=== PATIENT | female | born 1970 | race Caucasian/White ===

== ENCOUNTER → 2024-09-08 | Outpatient (CLI) | payer MEDICAID, SELFPAY ==
--- NOTE | 2024-09-08 14:30 | XR_ITS ---
Examination: Screening digital mammography, bilateral Computer aided detection 3-D breast Tomosynthesis, bilateral Date and time of exam: 05/11/2024 1413 hours Compared to mammograms dating to February 06, 2015 Indication: Screening Technique: Nonmagnified MLO, CC views of the breasts to been obtained, reconstructed from 3-D Tomosynthesis images. R2 computer aided detection program utilized for evaluation of suspicious masses and/or abnormal calcifications. 3-D Tomosynthesis images obtained. Findings: The breasts are heterogeneously dense, which may obscure small masses Breast biopsy marker retroareolar region right breast No interval suspicious mass Impression: BI-RADS category II: Benign Findings. Recommend 1 year follow-up mammogram.
== END | disposition home or self-care (01) ==
LOC: CDIM 14:06
PROVIDERS: Referring Provider Physician Assistant; Visit Provider Physician Assistant
DX: Z12.31 Encounter for screening mammogram for malignant neoplasm of breast (principal); R92.323 Mammographic fibroglandular density, bilateral breasts
CPT/HCPCS: 77063; 77067

== ENCOUNTER 2024-10-05 06:50 | Day surgery (SDC) | payer MEDICAID, SELFPAY ==
--- NOTE | 2024-10-03 06:00 | EKG_ITS ---
[facility] Test Date: 2024-10-03 Pat Name: DESIRE BARAJAS Department: Room: - Gender: Female House Manager: VALARIE : 1970 Requested By: Navi Osborn Order Number: [id number] Reading MD: Navi Osborn Measurements Intervals Donalds Rate: 51 P: 63 NE: 138 QRS: 59 QRSD: 80 T: 55 QT: 472 QTc: 436 Interpretive Statements SINUS BRADYCARDIA No previous ECG available for comparison /store/S0/[id number].pdf
[2024-10-03 09:11] VITALS: BMI 31.7
[2024-10-03 10:00] LABS: Basophils # (Auto) 0.0 Thou/mm3 (0.0-0.2); Basophils % (Auto) 0 % (0-2.5); Eosinophils # (Auto) 0.0 Thou/mm3 (0.0-0.5); Eosinophils % (Auto) 0 % (0-10); Hematocrit 32.8 % (36.0-46.0); Hemoglobin 10.6 g/dL (12.0-16.0); Immature Granulocytes Auto 0.03 Thou/mm3 (0.00-0.00); Lymphocytes # (Auto) 1.4 Thou/mm3 (1.0-4.8); Lymphocytes % (Auto) 13 % (10-50); Mean Corpuscular HGB Conc 32.3 g/dl (31.0-37.0); Mean Corpuscular Hemoglobin 27.7 pg (25.0-35.0); Mean Corpuscular Volume 86 fL (80-100); Monocytes # (Auto) 0.4 Thou/mm3 (0.0-0.8); Monocytes % (Auto) 4 % (0-12); Neutrophils # (Auto) 8.7 Thou/mm3 (1.8-7.7); Neutrophils % (Auto) 82 % (37-80); Nucleated Red Blood Cell # 0.00 Thou/mm3 (0.00-0.00); Nucleated Red Blood Cell % 0 /100 WBC (0); Platelet Count 291 Thou/mm3 (140-440); RDW Standard Deviation 43.1 fL (36.4-46.3); Red Blood Count 3.83 Miln/mm3 (4.00-5.20); White Blood Count 10.6 Thou/mm3 (3.6-11.0)
[2024-10-03 10:24] LABS: Alanine Aminotransferase 15 U/L (10-49); Albumin, Serum 4.6 gm/dL (3.5-5.0); Albumin/Globulin Ratio 1.8 (1.2-2.2); Alkaline Phosphatase 102 U/L (46-116); Anion Gap 12 (7-16); Aspartate Amino Transferase 14 U/L (0-34); BUN/Creatinine Ratio 33 Ratio (12-20); Bilirubin,Total 0.3 mg/dL (0.3-1.2); Blood Urea Nitrogen 23 mg/dL (9-23); Calcium 9.8 mg/dL (8.3-10.6); Calcium (Corrected) 9.8 mg/dL (8.5-10.1); Carbon Dioxide 21.6 mMol/L (20.0-31.0); Chloride 109 mMol/L (98-107); Creatinine (Component) 0.7 mg/dL (0.6-1.3); Estimated Creatinine Clearance 84.3 mL/min (>60); Globulin 2.6 gm/dL (2.3-3.5); Glucose 135 mg/dL (74-106); Osmolality,Calculated 290 (275-295); Potassium 3.5 mMol/L (3.4-5.1); Sodium 143 mMol/L (136-145); Total Protein 7.2 gm/dL (5.7-8.2); eGFR > 60 See Note
[2024-10-03 10:28] LABS: HCG,Qualitative Serum Negative
[2024-10-03 11:00] LABS: Hepatitis A Antibody IgM Non Reactive (Non React); Hepatitis B Core Antibody IgM Non Reactive (Non React); Hepatitis B Surface Antigen Non Reactive (Non React); Hepatitis C Antibody Non Reactive (Non React)
[2024-10-03 12:12] LABS: HIV (1&2) Antibody Rapid Non-Reactive
[2024-10-05] VITALS (7 sets, daily range): BP systolic 140–155; BP diastolic 67–82; PULSE 49–76; RESP 12–20; TEMP 36.1–36.2; O2SAT 98–100; BMI 32.1
--- NOTE | 2024-10-05 07:50 | PD.GYNHP ---
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 MORRIS is a 54 year old female para 4 admitted for a diagnostic hysteroscopy polypectomy. Patient was seen for abnormal uterine bleeding in the office and on examination was found to have a 4 cm large sessile polyp. Patient was offered an office removal versus removal under anesthesia and a diagnostic hysteroscopy to remove any other anticipated endometrial polyps. Patient desires hysteroscopy instead. Has a history of chronic hypertension on medication Review of Systems Review of Systems Systems Reviewed: All systems reviewed, normal except as documented Constitutional Constitutional: Reports as per HPI Respiratory Respiratory: Reports as per HPI Musculoskeletal Musculoskeletal: Reports as per HPI Integumentary/Breasts Skin/Breast: Reports other (Pale skin) Hematologic/Lymphatic Hematologic/Lymphatic: Reports as per HPI and Reports easy bruising Meds Home Medications and Allergies Home Medications ?Medication ?Instructions ?Recorded ?Confirmed ?Type lisinopril 20 mg tablet 20 mg PO QDAY 01/06/18 10/03/24 History magnesium 100 mg capsule 100 mg PO QDAY 10/03/24 10/03/24 History multivitamin (Daily Multi-Vitamin 1 tab PO QAM 10/03/24 10/03/24 History tablet) Allergies Allergy/AdvReac Type Severity Reaction Status Date / Time No Known Allergies Allergy Verified 10/03/24 09:06 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 - 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 Vital Signs Temp Pulse Resp BP Pulse Ox 97.2 F 49 L 14 140/67 H 98 10/05/24 07:10 10/05/24 07:10 10/05/24 07:10 10/05/24 07:10 10/05/24 07:10 Constitutional Constitutional: no acute distress Routine HEENT Exam Head: Present normocephalic and atraumatic Eye: Present EOMI and PERRL ENT: Present mucous membranes moist Routine Neck Exam Neck: Present supple and trachea midline Routine Respiratory Exam Respiratory: Present chest non-tender, lungs clear, normal breath sounds and no resp distress Routine Cardiovascular Exam Cardiovascular: Present RRR Routine Abdominal Exam Abdominal: Present soft and normoactive bowel sounds Routine Extremities Exam Extremities: Present full ROM Routine Skin Exam Skin: Present intact and dry Routine Neurological Exam Neurological: Present alert, oriented X3 and CN II-XII intact Routine Psychiatric Exam Psychiatric: Present normal affect and normal thought process 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 Anterior body uterus fibroid nodule measuring 1.6 x 1.7 cm, no changecompared to prior examination. Endometrial thickness 9.5 mm. No free fluidin the cul-de-sac. Adnexa is intact.Right ovary measures 2.8 x 2.3 x 2.6 cm. Right ovarian cysts, largestmeasuring 1.8 cm.Left ovary measures 3.2 x 2.6 x 3.4 cm.Left ovarian small follicular cysts. Not a candidate for oral contraceptive pills as she is hypertensive Declines to use any other hormonal methods Assessment and Plan Additional Assessment & Plan Additional Plan: Hysteroscopy, diagnostic and polypectomy Quality Measures Quality Measures VTE prophylaxis
--- NOTE | 2024-10-05 09:29 | SUR.PHASEI ---
pt received from OR in recovery bay 5. pt awake and alert, breathing unlabored on nc 2l. v/s stable. pt dressing peripad cdi. report received from Marcia Bethea and Jamarcus COTTO.
--- NOTE | 2024-10-05 09:37 | SUR.PHASEI ---
pt able to tolerate oral fluids without difficulty swallowing or nausea/vomiting.
--- NOTE | 2024-10-05 09:48 | PD.GYNPROC ---
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 The potential benefits and risks of the procedure, the likelihood of success, and the problems related to recuperation have been discussed with patient who agrees to proceed. The possible results of nontreatment and significant alternatives to the proposed procedure have also been explained, along with the risks and benefits of the alternatives. Risks and benefits of chosen anesthetic/sedation and possible use of blood/blood products (if appropriate) were discussed.The patient was identified as Carolin Verdugo and the procedure verified. A time out was held reviewing the patient identifiers, procedure planned and allergies. At this point the procedure was begun. The patient was positioned and prepped in routine fashion in the dorsal lithotomy position using yellowfin stirups. On examination under anesthesia,the uterus was retroverted to a normal size. Bladder was drained by catheter. A weighted speculum was then placed into the patient's posterior vagina. A kaila was used to expose the anterior lip of the cervix which was then grasped by a single tooth tenaculum.a sessile endocervical polyp was held by stone holding forceps and with multiple rotatory movements was removed and sent for pathology no bleeding noted the cervix was then very easily dilated to a size 6 Hegar dilator. The hysteroscope was then placed under direct visualization. Warm lactated Ringer's was used as a distention medium. The patient's uterus was found to have normal endometrial cavity. Pictures were taken. Hysteroscope was removed. Using a blunt curette all 4 weston of the uterus where curetted to obtain sample . There was minimal bleeding noted and tenaculum was removed. Hemostasis was acheived with a ringed forcep on anterior cervix. Estimated blood loss (ml): 5 Surgical staff Operation Date: 10/05/24 09:00 Case Staff SUPERVISOR SANDING: Austin Young Diagnosis Problem List Completed Was Problem List Reviewed/Reconciled?: Yes
--- NOTE | 2024-10-05 10:20 | SUR.PHASEII ---
pt awake and alert, breathing unlabored on room air. v/s stable. pt dressing peripad cdi. pt able to ambulate to wheelchair with steady gait. d/c instructions given with daughter Diamond in room using delivery tech Gilberto Bunch, all questions answered. pt d/c via wheelchair with all belongings.
== END 2024-10-05 10:20 | disposition home or self-care (01) ==
PROVIDERS: PCP Physician Assistant; Referring Provider Student in an Organized Health Care Education/Training Program; Visit Provider Student in an Organized Health Care Education/Training Program
PROC: 0UJD8ZZ Inspection of Uterus and Cervix, Via Natural or Artificial Opening Endoscopic (ICD-10-PCS; CPT 58555; principal; 2024-10-05 08:45)
DX: N84.1 Polyp of cervix uteri (principal); I10 Essential (primary) hypertension; D25.9 Leiomyoma of uterus, unspecified; Z01.810 Encounter for preprocedural cardiovascular examination
CPT/HCPCS: 58558; 36415; 80053; 80074; 84703; 85025; 86703; 86850; 86900; 86901; 93005; A4217; A4649; J1885; J2250; J2704; J3010; J3490